=== PATIENT | female | born 1985 | race Caucasian/White ===

== ENCOUNTER 2020-11-21 01:14 | Inpatient (IN) ==
[2020-11-21 03:48] LABS: Urine Benzodiazepine Screen None Detected (None Detect); Urine Cannabinoids Screen None Detected (None Detect); Urine Opiates Screen None Detected (None Detect)
[2020-11-21] MEDS ORDERED: Witch Hazel PAD JAR TOPICAL PRN (22:12)
[2020-11-21] MEDS ORDERED: Oxytocin 10 UNITS/ML 1 ML VIAL IM ONE (22:12)
[2020-11-21] MEDS ORDERED: Dibucaine 1% OINT 28.35 GM TUBE PR PRN (22:12)
[2020-11-21] MEDS ORDERED: Oxytocin in LR 20 UNITS/1,000 ML BAG IVPB SCH (23:00)
[2020-11-21] MEDS ORDERED: Lactated Ringers 1000 ml BAG 1,000 ML IV SCH (23:00)
[2020-11-22] MEDS ORDERED: Ammonia Inhalant 1 EA AMP ONE (02:15)
[2020-11-22 08:21] LABS: Hematocrit 35 % (35-47); Hemoglobin 12.3 g/dL (12.0-16.0); Mean Corpuscular HGB Conc 35 g/dL (31-36); Mean Corpuscular Hemoglobin 33 pg (27-31); Mean Corpuscular Volume 94 fL (80-97); Mean Platelet Volume 7.5 fL (7.4-10.4); Platelet Count 322 10^3/uL (150-450); Red Blood Count 3.72 10^6 /uL (3.70-4.87); Red Cell Distribution Width 13 % (10-15); White Blood Count 26.1 10^3/uL (3.5-10.8)
[2020-11-22 08:25] LABS: ABS Lymphocytes 2.2 10^3/ul (1.0-4.8); ABS Monocytes 1.8 10^3/ul (0-0.8); Eosinophil % 0.1 %; Lymphocyte % 8.6 %
[2020-11-23 08:35] VITALS: BP 95/64
== END 2020-11-23 13:56 | disposition home or self-care (01) | DRG 560 ==
LOC: MCHOBOUT 01:14 → MCHOB 02:17
PROVIDERS: ADMIT Midwife; ATTEND Obstetrics & Gynecology

== ENCOUNTER 2023-11-17 15:58 | Inpatient (IN) ==
[2023-11-17] MEDS ORDERED: Lactated Ringers 1000 ml BAG 1,000 ML IV ONE (16:37)
[2023-11-17] MEDS ORDERED: Buffered Lidocaine 1% SYRIN 1 ml INTRADERM ONE (16:37)
[2023-11-17] MEDS ORDERED: Lidocaine 1% VIAL 10 MG/ML 30 ML VIAL INJ PRN (16:37)
[2023-11-17] MEDS ORDERED: Lactated Ringers 1000 ml BAG 1,000 ML IV SCH ×2 (17:00→21:00)
[2023-11-17 18:15] LABS: Urine Benzodiazepine Screen None Detected (None Detect); Urine Opiates Screen None Detected (None Detect)
[2023-11-17 18:51] LABS: ABS Basophils 0.1 10^3/uL (0.0-0.1); ABS Eosinophils 0.2 10^3/uL (0.0-0.5); ABS Lymphocytes 2.5 10^3/uL (1.0-4.8); ABS Neutrophils 14.2 10^3/uL (1.5-7.6); Eosinophil % 0.9 %; Hematocrit 37.1 % (35-45); Hemoglobin 12.7 g/dL (11.5-14.3); Lymphocyte % 13.9 %; Mean Corpuscular Hgb Conc 34.1 g/dL (31-36); Mean Corpuscular Volume 93.8 fL (80-97); Mean Platelet Volume 7.3 fL (7.5-11.2); Platelet Count 313 10^3/uL (150-450); Red Blood Count 3.96 10^6/uL (3.63-4.92); Red Cell Distribution Width 12.4 % (12-17)
[2023-11-17] MEDS ORDERED: Dibucaine 1% OINT 28.35 GM TUBE PR PRN (20:24)
[2023-11-17] MEDS ORDERED: Witch Hazel PAD JAR TOPICAL PRN (20:24)
[2023-11-18 07:10] LABS: ABS Eosinophils 0.1 10^3/uL (0.0-0.5); ABS Lymphocytes 2.7 10^3/uL (1.0-4.8); ABS Monocytes 1.5 10^3/uL (0.0-0.9); ABS Neutrophils 18.8 10^3/uL (1.5-7.6); ABS Nucleated RBC 0.01 10^3/ul; Eosinophil % 0.5 %; Hematocrit 32.7 % (35-45); Hemoglobin 11.3 g/dL (11.5-14.3); Lymphocyte % 11.6 %; Mean Corpuscular Hemoglobin 32.1 pg (27-33); Mean Corpuscular Hgb Conc 34.4 g/dL (31-36); Mean Corpuscular Volume 93.3 fL (80-97); Mean Platelet Volume 7.5 fL (7.5-11.2); Platelet Count 304 10^3/uL (150-450); Red Blood Count 3.51 10^6/uL (3.63-4.92); Red Cell Distribution Width 12.2 % (12-17); White Blood Count 23.1 10^3/uL (3.8-11.8)
[2023-11-19 09:31] VITALS: BP 93/61
== END 2023-11-19 12:28 | disposition home or self-care (01) | DRG 807 ==
LOC: MCHOBOUT 15:58 → MCHOB 16:54
PROVIDERS: ADMIT Registered Nurse; ATTEND Obstetrics & Gynecology